=== PATIENT | male | born 1935 | race Caucasian/White ===

== ENCOUNTER 2016-12-15 16:26 | Inpatient (IN) | payer MEDICARE, MEDICAID ==
[~2016-12-15] VITALS: Ht 170.2 cm; Wt 79.8 kg
[~2016-12-15 16:26] MED LIST: ASPI-1159 PO; CLOP75TA2 PO; LOSA50TA3 PO; PRAV40TA PO; VERA240C2 PO
[2016-12-15 17:34] LABS: BASOPHILS % 0.3 % (0.0-2.0); EOSINOPHILS % 0.4 % (0.0-5.0); HEMATOCRIT. 37.9 % (42.0-52.0); HEMOGLOBIN. 12.4 g/dL (14.0-18.0); MEAN CORPUSCULAR HEMOGLOBIN 27.4 pg (28.0-32.0); MEAN CORPUSCULAR VOLUME 83.7 fL (80.0-94.0); MEAN PLATELET VOLUME 10.1 fl (7.4-10.4); MONOCYTES % 7.1 % (2.0-8.0); NEUTROPHILS % 83.2 % (40.0-76.0); PLATELET 215 x1000/uL (130-400); RED BLOOD CELL COUNT 4.53 mill/uL (4.7-6.1); RED CELL DISTRIBUTION WIDTH 14.4 % (11.6-14.6)
[2016-12-15 17:36] LABS: INR 1.1; PARTIAL THROMBOPLASTIN TIME 29.3 sec (24.0-34.0)
[2016-12-15 17:44] LABS: CARBON DIOXIDE 26 mEq/L (21-32); CHLORIDE 97 mEq/L (98-107)
[2016-12-15] MEDS ORDERED: ASPIRIN 325MG EC TABLET PO ONE (18:00)
[2016-12-15] MEDS ORDERED: ENOXAPARIN 100MG/ML SYR SUBCUT ONE (18:00)
[2016-12-15] MEDS ORDERED: LEVOFLOXACIN 750MG PREMIX 150 ML IV ONE (18:15)
[2016-12-15 20:30] VITALS: BP 109/69
[2016-12-15 21:00] VITALS: BP 109/69
[2016-12-15] MEDS ORDERED: CIPR-213 PO (21:41)
[2016-12-15 22:01] VITALS: BP 100/61
[2016-12-15] MEDS ORDERED: IPRATROPIUM/ALBUTEROL 0.5-3(2.5)MG/3ML NEB INH PRN (22:15)
[2016-12-15] MEDS ORDERED: ACETAMINOPHEN 325MG TABLET PO PRN (22:15)
[2016-12-15] MEDS ORDERED: MAGNESIUM/ALUMINUM HYDROXIDE/SIMETHICONE 30ML UDC PO PRN (22:15)
[2016-12-15] MEDS ORDERED: DOCUSATE SODIUM 100MG CAPSULE PO PRN (22:15)
[2016-12-15] MEDS ORDERED: CLONIDINE 0.1MG TABLET PO PRN (22:15)
[2016-12-15] MEDS ORDERED: HYDROCODONE/ACETAMINOPHEN 5/325MG TABLET PO PRN (22:15)
[2016-12-15] MEDS ORDERED: ONDANSETRON HCL 4MG/2ML VIAL IV PRN (22:15)
[2016-12-15] MEDS: ENOXAPARIN 40MG/0.4ML SYR SUBCUT SCH (22:44)
[2016-12-15] MEDS: BRIMONIDINE 0.2% OPHTH DROPS 5ML BOTHEYE SCH (22:45)
[2016-12-15] MEDS ORDERED: DEXTROSE 50% WATER 50ML SYRINGE IV PRN (23:30)
[2016-12-16] VITALS (13 sets, daily range): BP systolic 97–123; BP diastolic 59–76
[2016-12-16 02:49] LABS: CREATINE KINASE MB FRACTION 2.7 ng/mL (0.5-3.6)
[2016-12-16 03:45] LABS: TROPONIN I 8.2 ng/mL (0.00-0.04)
[2016-12-16] MEDS: BRIMONIDINE 0.2% OPHTH DROPS 5ML BOTHEYE SCH ×3 (06:31→22:41)
[2016-12-16] MEDS: FUROSEMIDE 40MG/4ML VIAL IVP SCH ×2 (06:32→18:13)
[2016-12-16 06:49] LABS: BASOPHILS % 0.5 % (0.0-2.0); EOSINOPHILS % 1.2 % (0.0-5.0); HEMATOCRIT. 37.2 % (42.0-52.0); HEMOGLOBIN. 12.2 g/dL (14.0-18.0); LYMPHOCYTES % 18.1 % (20.0-50.0); MEAN CORPUSCULAR HEMOGLOBIN 27.6 pg (28.0-32.0); MEAN CORPUSCULAR VOLUME 84.2 fL (80.0-94.0); MEAN PLATELET VOLUME 10.2 fl (7.4-10.4); NEUTROPHILS % 69.2 % (40.0-76.0); PLATELET 214 x1000/uL (130-400); RED BLOOD CELL COUNT 4.42 mill/uL (4.7-6.1); RED CELL DISTRIBUTION WIDTH 14.4 % (11.6-14.6)
[2016-12-16] MEDS: BLOOD SUGAR DIAGNOSTIC STRIP TEST SCH ×4 (07:30→21:24)
[2016-12-16] MEDS: INSULIN LISPRO 100 UNITS/ML SUBCUT SCH ×4 (08:00→21:00)
[2016-12-16] MEDS: POTASSIUM CHLORIDE 20MEQ TABLET SR PO SCH ×2 (08:46→18:13)
[2016-12-16] MEDS: ASPIRIN 81MG TABLET PO SCH (08:46)
[2016-12-16] MEDS: CLOPIDOGREL 75MG TABLET PO SCH (08:46)
[2016-12-16] MEDS: METFORMIN HCL 500MG TABLET PO SCH ×2 (08:46→18:13)
[2016-12-16] MEDS: LOSARTAN POTASSIUM 50 MG TABLET PO SCH ×2 (08:48→09:00)
[2016-12-16] MEDS: CARVEDILOL 6.25 MG TABLET PO SCH ×2 (08:48→21:36)
[2016-12-16] MEDS ORDERED: PNEUMOCOCCAL 23-VAL P-SAC VAC 0.5 ML IM ONE (09:00)
[2016-12-16 10:59] LABS: CREATINE KINASE MB FRACTION 2.5 ng/mL (0.5-3.6)
[2016-12-16 11:14] LABS: TROPONIN I 5.9 ng/mL (0.00-0.04)
[2016-12-16] MEDS: LEVOFLOXACIN 500MG TABLET PO SCH (11:16)
[2016-12-16 20:10] LABS: CREATINE KINASE MB FRACTION 1.8 ng/mL (0.5-3.6)
[2016-12-16 20:17] LABS: TROPONIN I 4.8 ng/mL (0.00-0.04)
[2016-12-16] MEDS ORDERED: ATORVASTATIN CALCIUM 40MG TABLET PO SCH (21:00)
[2016-12-16] MEDS ORDERED: LATANOPROST 0.005% OPHTH DROPS 2.5ML BOTHEYE SCH (21:00)
[2016-12-16] MEDS: ENOXAPARIN 40MG/0.4ML SYR SUBCUT SCH (22:41)
[2016-12-17] VITALS (9 sets, daily range): BP systolic 109–140; BP diastolic 47–81
[2016-12-17] MEDS: BRIMONIDINE 0.2% OPHTH DROPS 5ML BOTHEYE SCH ×2 (06:11→13:04)
[2016-12-17] MEDS: FUROSEMIDE 40MG/4ML VIAL IVP SCH (06:11)
[2016-12-17 06:42] LABS: BASOPHILS % 0.5 % (0.0-2.0); EOSINOPHILS % 3.2 % (0.0-5.0); HEMATOCRIT. 38.6 % (42.0-52.0); HEMOGLOBIN. 12.8 g/dL (14.0-18.0); LYMPHOCYTES % 19.7 % (20.0-50.0); MEAN CORPUSCULAR HEMOGLOBIN 27.8 pg (28.0-32.0); MEAN CORPUSCULAR VOLUME 84.1 fL (80.0-94.0); MEAN PLATELET VOLUME 10.1 fl (7.4-10.4); MONOCYTES % 11.9 % (2.0-8.0); NEUTROPHILS % 64.7 % (40.0-76.0); PLATELET 262 x1000/uL (130-400); RED BLOOD CELL COUNT 4.59 mill/uL (4.7-6.1); RED CELL DISTRIBUTION WIDTH 14.3 % (11.6-14.6)
[2016-12-17] MEDS: BLOOD SUGAR DIAGNOSTIC STRIP TEST SCH ×2 (07:30→11:37)
[2016-12-17 07:36] LABS: CARBON DIOXIDE 39 mEq/L (21-32); CHLORIDE 94 mEq/L (98-107); CREATINE KINASE 43 IU/L (39-308); CREATINE KINASE MB FRACTION 1.8 ng/mL (0.5-3.6)
[2016-12-17] MEDS: INSULIN LISPRO 100 UNITS/ML SUBCUT SCH ×2 (08:28→13:04)
[2016-12-17] MEDS: LOSARTAN POTASSIUM 50 MG TABLET PO SCH (08:29)
[2016-12-17] MEDS: CARVEDILOL 6.25 MG TABLET PO SCH (08:29)
[2016-12-17] MEDS: ASPIRIN 81MG TABLET PO SCH (08:30)
[2016-12-17] MEDS: METFORMIN HCL 500MG TABLET PO SCH (08:30)
[2016-12-17] MEDS: CLOPIDOGREL 75MG TABLET PO SCH (08:30)
[2016-12-17] MEDS: POTASSIUM CHLORIDE 20MEQ TABLET SR PO SCH (08:31)
[2016-12-17] MEDS: LEVOFLOXACIN 500MG TABLET PO SCH (11:36)
[2016-12-17] MEDS ORDERED: FUROSEMIDE 40MG TABLET PO SCH (17:00)
== END 2016-12-17 15:10 | disposition home or self-care (01) | DRG 194 ==
LOC: ER 16:27 → 5EST 18:01 → ENRESERV 18:49
PROVIDERS: ADMIT Internal Medicine; ATTEND Internal Medicine
DX: I11.0 Hypertensive heart disease with heart failure (principal); N17.0 Acute kidney failure with tubular necrosis; I22.2 Subsequent non-ST elevation (NSTEMI) myocardial infarction; E44.1 Mild protein-calorie malnutrition; B19.10 Unspecified viral hepatitis B without hepatic coma; I69.354 Hemiplegia and hemiparesis following cerebral infarction affecting left non-dominant side; I50.43 Acute on chronic combined systolic (congestive) and diastolic (congestive) heart failure; E11.9 Type 2 diabetes mellitus without complications; E78.00 Pure hypercholesterolemia, unspecified; H26.9 Unspecified cataract; R35.1 Nocturia; R21 Rash and other nonspecific skin eruption; I42.9 Cardiomyopathy, unspecified; H40.9 Unspecified glaucoma; I25.10 Atherosclerotic heart disease of native coronary artery without angina pectoris; K21.9 Gastro-esophageal reflux disease without esophagitis; K59.00 Constipation, unspecified; Z95.1 Presence of aortocoronary bypass graft; Z98.61 Coronary angioplasty status; Z79.82 Long term (current) use of aspirin; Z79.899 Other long term (current) drug therapy; Z68.27 Body mass index [BMI] 27.0-27.9, adult
CPT/HCPCS: 36415; 71010; 80048; 80053; 82550; 82553; 82962; 83690; 83735; 84443; 84484; 85025; 85610; 85730; 87040; 90732; 93005; 93970; 94620; 96365; 96366; 96372; 99291; J1650; J1815; J1940; J1956